=== PATIENT | female | born 1975 | race Asian ===

== ENCOUNTER 2017-04-15 09:51 | Emergency (ER) | payer OTHER ==
[2017-04-15 10:16] VITALS: BP 136/78; PULSE 98; TEMP 98.7; BMI 35.0
[2017-04-15 11:10] LABS: URINE APPEARANCE SLCLOUDY; URINE BILIRUBIN NEGATIVE (NEGATIVE); URINE BLOOD 2+ (NEGATIVE); URINE COLOR YELLOW; URINE GLUCOSE (UA) NEGATIVE (NEGATIVE); URINE KETONE NEGATIVE (NEGATIVE); URINE NITRITE NEGATIVE (NEGATIVE); URINE PROTEIN NEGATIVE (NEGATIVE); URINE UROBILINOGEN NEGATIVE mg/dL (0.2-1.0)
[2017-04-15 11:12] LABS: URINE LEUK ESTERASE 2+ (NEGATIVE)
[2017-04-15 11:27] LABS: EPI CELLS RARE /HPF (FEW); URINE BACTERIA MODERATE /hpf (NONE SEEN); URINE MUCUS RARE
[2017-04-15 11:34] LABS: HCG,QUALITATIVE URINE NEGATIVE
--- NOTE | 2017-04-15 11:38 | PDOC ---
History of Present Illness - General Chief Complaint: Urinary Problem Stated Complaint: POSSIBLE UTI Time Seen by Provider: 04/15/17 10:29 History Source: Patient Exam Limitations: No Limitations - History of Present Illness Initial Comments: 04/15/17 11:32 Patient is a 41-year-old female, has history of urinary tract infections presents with dysuria, mild hematuria, urinary frequency and pain to lower back. Patient reports symptoms started 2 weeks ago started to take amoxicillin that she had at home still with discomfort. Past Medical History: [Denies]. Allergies: No known allergies Medications: [None] Family History: Non-contributory Social History: Denies smoking, alcohol use, or IVDU Review of Systems GENERAL/CONSTITUTIONAL: [No fever or chills. No weakness. No weight change.] HEAD, EYES, EARS, NOSE AND THROAT: [No change in vision. No ear pain or discharge. No sore throat. ] CARDIOVASCULAR: [No chest pain or shortness of breath.] RESPIRATORY: [No cough, wheezing, or hemoptysis.] GASTROINTESTINAL: [No nausea, vomiting, diarrhea or constipation. No rectal bleeding.] GENITOURINARY: [Dysuria, frequency and hematuria MUSCULOSKELETAL: [No joint or muscle swelling or pain. No neck or back pain.] SKIN: [No rash or easy bruising.] NEUROLOGIC: [No headache, vertigo, loss of consciousness, or loss of sensation.] Physical Exam: GENERAL: [The patient is awake, alert, and fully oriented, in no acute distress. ] EYES: [Pupils equal, round and reactive to light, extraocular movements intact, sclera anicteric, conjunctiva clear.] ENT: [Ears normal, nares patent, oropharynx clear without exudates. Moist mucous membranes. No uvula deviation] NECK: [Normal range of motion, supple without lymphadenopathy, JVD, or masses.] LUNGS: [Breath sounds equal, clear to auscultation bilaterally. No wheezes, and no crackles.] HEART: [Regular rate and rhythm, normal S1 and S2 without murmur, rub or gallop. ] ABDOMEN: [Soft, nontender, normoactive bowel sounds. No guarding, no rebound. No masses. No bruising or abrasions] MUSCULOSKELETAL: [Normal range of motion, no edema. No clubbing or cyanosis. No cords, erythema, or tenderness. No CVA Tenderness with fist palpation. ] NEUROLOGICAL: [Cranial nerves II through XII grossly intact. Normal speech, normal gait.] SKIN: [Warm, Dry, normal turgor, no rashes or lesions noted.] Past History - Past Medical History Allergies/Adverse Reactions: Allergies Allergy/AdvReac Type Severity Reaction Status Date / Time No Known Allergies Allergy Verified 04/15/17 10:13 Home Medications: Ambulatory Orders Oxycodone HCl/Acetaminophen [Percocet 7.5-500 mg Tablet] 1 - 2 tab PO Q4H #20 tablet 01/29/13 Hydrocodone Bit/Acetaminophen [Vicodin 5-300mg Tablet] 1 - 2 tab PO Q4H PRN #60 tablet 01/31/13 Cephalexin [Keflex] 500 mg PO BID #14 capsule 04/15/17 Anemia: Yes Asthma: No Cancer: No Cardiac Disorders: No CVA: No COPD: No CHF: No Dementia: No Diabetes: No GI Disorders: No Disorders: No HTN: No Hypercholesterolemia: No Liver Disease: No Seizures: No Thyroid Disease: No - Surgical History Abdominal Surgery: Yes Appendectomy: No Cardiac Surgery: No Cholecystectomy: No Lung Surgery: No Neurologic Surgery: No Orthopedic Surgery: Yes (ORIF RIGHT ANKLE 2013) - Immunization History Immunization Up to Date: Yes - Suicide/Smoking/Psychosocial Hx Smoking Status: No Smoking History: Never smoked Number of Cigarettes Smoked Daily: 0 Hx Alcohol Use: No Drug/Substance Use Hx: No Substance Use Type: None Hx Substance Use Treatment: No *Physical Exam - Vital Signs Last Vital Signs Temp Pulse Resp BP Pulse Ox 98.7 F 98 H 18 136/78 100 04/15/17 10:13 04/15/17 10:13 04/15/17 10:13 04/15/17 10:13 04/15/17 10:13 ED Treatment Course - ADDITIONAL ORDERS Additional order review: Laboratory Results 04/15/17 10:45 Urine Color Yellow Urine Appearance Slcloudy Urine pH 6.0 Ur Specific [place] 1.013 Urine Protein Negative Urine Glucose (UA) Negative Urine Ketones Negative Urine Blood 2+ H Urine Nitrite Negative Urine Bilirubin Negative Urine Urobilinogen Negative Ur Leukocyte Esterase 2+ H D Urine WBC (Auto) 35 Urine RBC (Auto) 14 Ur Epithelial Cells Rare Urine Bacteria Moderate Urine Mucus Rare Medical Decision Making - Medical Decision Making 04/15/17 11:34 A/P: Patient with dysuria, frequency and hematuria. Patient does have a significant urinary tract infection. Patient currently just completed menses one days ago may be the cause of hematuria, Laboratory Results - last 24 hr 04/15/17 10:45 Urine Color Yellow Urine Appearance Slcloudy Urine pH 6.0 Ur Specific [place] 1.013 Urine Protein Negative Urine Glucose (UA) Negative Urine Ketones Negative Urine Blood 2+ H Urine Nitrite Negative Urine Bilirubin Negative Urine Urobilinogen Negative Ur Leukocyte Esterase 2+ H D Urine WBC (Auto) 35 Urine RBC (Auto) 14 Ur Epithelial Cells Rare Urine Bacteria Moderate Urine Mucus Rare Urine HCG, Qual Negative We'll DC patient on Keflex I discussed the physical exam findings, ancillary test results and final diagnoses with the patient. I answered all of the patient's questions. The patient was satisfied with the care received and felt comfortable with the discharge plan and treatment plan. The patient will call to arrange follow-up and will return to the Emergency Department with any new, persistent or worsening symptoms. *DC/Admit/Observation/Transfer Diagnosis at time of Disposition: Urinary tract infection Qualifiers: Urinary tract infection type: acute cystitis Hematuria presence: with hematuria Qualified Code(s): N30.01 - Acute cystitis with hematuria - Discharge Dispostion Disposition: HOME Condition at time of disposition: Stable Admit: No - Prescriptions Prescriptions: Cephalexin [Keflex] 500 mg PO BID #14 capsule - Referrals Referrals: Amber Landa MD [Primary Care Provider] - - Patient Instructions Printed Discharge Instructions: Urinary Tract Infection Additional Instructions: Please increase fluid intake, antibiotics as ordered, recommend follow-up with urology if symptoms persist in 3 days if any fever, increased back pain, nausea vomiting, or any other concerns return to ER - Post Discharge Activity
--- NOTE | 2017-04-18 14:31 | PDOC ---
Patient Follow-up (Call Back) - Post ED Follow - Up Condition at time of discharge: Stable Disposition at time of original discharge: HOME Reason for Call Back: Abnwl. Microbiology (Urine culture shows that keflex is an intermiedient drug choice. Called patient to follow up on symptoms. Reports that she is feeling much better. Will not switch abx at this time. Told patient to finish drug course.)
== END 2017-04-15 11:43 | disposition home or self-care (01) ==
LOC: JERFT 09:51
DX: N30.01 Acute cystitis with hematuria (principal); Z86.2 Personal history of diseases of the blood and blood-forming organs and certain disorders involving the immune mechanism
CPT/HCPCS: 36415; 81003; 81015; 84703; 87077; 87086; 87186; 87491; 87591; 99281-25

== ENCOUNTER 2019-05-14 18:50 | Emergency (ER) | payer OTHER ==
--- NOTE | 2019-05-14 19:05 | PDOC ---
Rapid Medical Evaluation Time Seen by Provider: 05/14/19 19:00 Medical Evaluation: Allergies Allergy/AdvReac Type Severity Reaction Status Date / Time No Known Allergies Allergy Verified 04/15/17 10:13 05/14/19 19:01 I performed a brief in-person evaluation of this patient. 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 She has low grade fevers, bodyaches and dizziness since yesterday. Tmax was 100F. Pertinent physical exam findings: General unwell appearing but nontoxic. No respiratory distress. I have ordered the following: cxr, covid-19 Patient to proceed to [facility] for further evaluation. Discharge Disposition - Diagnosis Body aches - Referrals - Patient Instructions - Post Discharge Activity
[2019-05-14 19:09] VITALS: BP 125/86; PULSE 82; TEMP 99
--- NOTE | 2019-05-14 19:31 | PDOC ---
Rapid Medical Evaluation Time Seen by Provider: 05/14/19 19:00 Medical Evaluation: Allergies Allergy/AdvReac Type Severity Reaction Status Date / Time No Known Allergies Allergy Verified 04/15/17 10:13 Vital Signs Temp Pulse Resp BP Pulse Ox 99.0 F 82 20 125/86 97 05/14/19 19:06 05/14/19 19:06 05/14/19 19:06 05/14/19 19:06 05/14/19 19:06 05/14/19 19:26 HPI: COVID-19 CDC guideline data points: The patient is a 43 y/o female presents with possible exposure to, suspected, or confirmed COVID-19 with associated symptoms of fever, cough, myalgia, and weakness. 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 Pt took tylenol 2 hrs ago for temp 100.6 ROS: NEGATIVE: difficulty breathing, shortness of breath, chest pain, lightheadedness, dizziness, nausea, vomiting and diarrhea. Other 12 point ROS reviewed and negative. Exam: General: NAD, Well-Appearing, Awake, Alert Oriented x3. 100.0 temp, pulse 109, 96 % on RA ENT: No rhinorrhea or nasal congestion. Neck: FROM, no midline tenderness. Lungs: Clear to auscultation bilaterally without wheezes, rhonchi or rales. Normal excursion. Patient is able to speak in full sentences. Heart: HR: [ ] Regular rhythm, S1-S2 present, no murmurs rubs or gallops. Abdomen: Non-distended. MSK/Extremities: No decrease ROM, No obvious deformities. No obvious cyanosis noted. Neuro: Normal Gait, Cranial Nerves II through XII Grossly Intact. Skin: No obvious rashes, bruising. Color Normal Appearing. Assessment/Plan: [Cough/fever] Patient s/s of Covid cxr and covid swab ordered in [facility] repeat vitals 109 96% on RA no resp distress 05/14/19 19:33 CXR although read as -. will treat for early PNA Discharge Disposition - Diagnosis Pneumonia - Discharge Dispostion Disposition: HOME Condition at time of disposition: Good Last Admission D/C Date: 08/08/11 - Referrals Referrals: Amber Landa MD [Primary Care Provider] - - Patient Instructions Printed Discharge Instructions: DI for Pneumonia -- Adult, [facility]Coronavirus Instructions, [facility] COVID-19 Isolation Protocol Additional Instructions: Please take zpak as prescribed . Drink plenty of fluids and try to stay active You were seen for your cough and possible Coronavirus (COVID-19) We will call [facility] covid results in about 5-7 days Take Tylenol 650 mg every 6 hours as needed for fever or pain. You may take Robitussin or other [id number]-[id number] cough syrup. Follow the dosing instructions on the bottle. Warm tea, honey, and salt water gargles may help your symptoms. Please take precautions and self quarantine for 2 weeks and follow-up with your primary care doctor and the Department of Health. Return to the nearest emergency department for shortness of breath, difficulty breathing, chest pain, or if you have any changes in your symptoms. - Post Discharge Activity
== END 2019-05-14 19:38 | disposition home or self-care (01) ==
LOC: JER 18:50
DX: J18.9 Pneumonia, unspecified organism (principal)
CPT/HCPCS: 71045-TC-FY; 99283-25; U0002

== ENCOUNTER 2019-09-22 17:21 | Emergency (ER) | payer OTHER ==
[2019-09-22 17:41] VITALS: BP 137/80; PULSE 94; TEMP 98.6; BMI 38.9
--- NOTE | 2019-09-22 17:54 | PDOC ---
History of Present Illness - General Chief Complaint: Respiratory Stated Complaint: COUGH/SOB Time Seen by Provider: 09/22/19 17:35 History Source: Patient Exam Limitations: No Limitations - History of Present Illness Initial Comments: 09/22/19 17:50 HISTORY OF PRESENT ILLNESS: 43-year-old woman with recent viral pneumonia presents emergency department for evaluation of cough and shortness of breath over the past 2 days. 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 Patient reports [facility] is seeing multiple positive coronavirus patients patient is concerned that she may possibly have coronavirus. She denies any fevers, chills, sore throat, chest pain, abdominal pain, nausea or vomiting. No recent travel or sick contacts. PAST MEDICAL HISTORY: See HPI SURGICAL HISTORY: Denies ALLERGIES: No known drug allergies REVIEW OF SYSTEMS General/Constitutional: Denies fever or chills. Denies weakness, weight change. HEENT: Denies change in vision. Denies ear pain or discharge. Denies sore throat. Cardiovascular: Denies chest pain or shortness of breath. Respiratory: See HPI Gastrointestinal: Denies nausea, vomiting, diarrhea or constipation. Denies rectal bleeding. Genitourinary: Denies dysuria, frequency, or change in urination. Musculoskeletal: Denies joint or muscle swelling or pain. Denies neck or back pain. Skin and breasts: Denies rash or easy bruising. Neurologic: Denies headache, vertigo, loss of consciousness, or loss of sensation. Psychiatric: Denies depression or anxiety. Endocrine: Denies increased thirst. Denies abnormal weight change. Hematologic/Lymphatic: Denies anemia, easy bleeding, or history of blood clots. Allergic/Immunologic: Denies hives or skin allergy. Denies latex allergy. PHYSICAL EXAM General Appearance: Well-appearing, appropriately dressed. No apparent distress, no intoxication. HEENT: EOMI, PERRLA, normal ENT inspection, normal voice. No conjunctival pallor. No photophobia, scleral icterus. TMs with retractions noted bilaterally. Oropharynx mildly erythematous without tonsillar exudate or swelling present. No intraoral lesions are noted. Neck: Supple. Trachea midline. No tenderness, rigidity, carotid bruit, stridor, lymphadenopathy, or thyromegaly. Respiratory/Chest: Lungs CTAB. No shortness of breath, chest tenderness, respiratory distress, accessory muscle use. No crackles, rales, rhonchi, stridor, wheezing, dullness Cardiovascular: RRR. S1, S2. No JVD, murmur, bradycardia, tachycardia. Integumentary: Appropriate color, dry, warm. No cyanosis, erythema, jaundice or rash Past History - Medical History Allergies/Adverse Reactions: Allergies Allergy/AdvReac Type Severity Reaction Status Date / Time No Known Allergies Allergy Verified 06/01/19 04:58 Home Medications: Ambulatory Orders Albuterol Sulfate Inhaler - [Ventolin HFA Inhaler -] 1 - 2 inh PO Q4H #1 inhaler 05/22/19 Famotidine [Pepcid -] 20 mg PO DAILY #7 tablet 06/01/19 Mag Hydrox/Al Hydrox/Simeth [Mylanta Suspension -] 30 ml PO Q6H #1 bottle 06/01/19 Anemia: Yes Asthma: No Cancer: No Cardiac Disorders: No CVA: No COPD: No CHF: No Dementia: No Diabetes: No GI Disorders: No Disorders: No HTN: No Hypercholesterolemia: No Liver Disease: No Seizures: No Thyroid Disease: No - Surgical History Abdominal Surgery: Yes Appendectomy: No Cardiac Surgery: No Cholecystectomy: No Lung Surgery: No Neurologic Surgery: No Orthopedic Surgery: Yes (ORIF RIGHT ANKLE 2013) - Reproductive History Is Patient Now?: No - Immunization History Immunization Up to Date: Yes - Psycho-Social/Smoking History Smoking Status: No Smoking History: Never smoked Have you smoked in the past 12 months: No Number of Cigarettes Smoked Daily: 0 - Substance Abuse Hx (Audit-C & DAST Scrn) How often the patient has a drink containing alcohol: Never Score: In Men: 4 or > Positive; In Women: 3 or > Positive: 0 Screen Result (Pos requires Nsg. Audit-10AR): Negative In the last yr the pt used illegal drug/Rx for NonMed reason: No Score: Yes response is considered Positive: 0 Screen Result (Positive result requires Nsg. DAST-10): Negative *Physical Exam - Vital Signs Last Vital Signs Temp Pulse Resp BP Pulse Ox 98.6 F 94 H 20 137/80 97 09/22/19 17:38 09/22/19 17:38 09/22/19 17:38 09/22/19 17:38 09/22/19 17:38 ED Treatment Course - RADIOLOGY Radiology Studies Ordered: Category Date Time Status CXR [CHEST PA & LAT] [RAD] Stat Radiology 09/22/19 17:46 Ordered Medical Decision Making - Medical Decision Making 09/22/19 17:53 A/P: 43-year-old woman with cough and shortness of breath for 3 days. Oropharynx mildly erythematous without tonsillar exudate or swelling present. TMs retracted bilaterally Lungs clear to auscultation bilaterally Physical exam is consistent with an upper respiratory infection. As patient works in healthcare at multiple jobs I will test for COVID-19. Chest x-ray Reassess 09/22/19 17:58 Chest x-ray as read by me: Angle sharp. Cardiac silhouette is within normal limits. Lung lui clear of infiltrates or consolidations. Discharge home the social distancing. I discussed the physical exam findings, ancillary test results and final diagnoses with the patient. I answered all of the patient's questions. The patient was satisfied with the care received and felt comfortable with the discharge plan and treatment plan. The patient will call their primary care physician within 24 hours to arrange follow-up and will return to the Emergency Department with any new, persistent or worsening symptoms. Portions of this note have been documented using voice recognition software. As a result, errors may occur in the pit inspector process. Effort has been made to correct all grammatical and pit inspector error, but some may have been missed which may produce sporadic inaccurate pit inspector or nonsensical phrases. Discharge - Discharge Information Problems reviewed: Yes Clinical Impression/Diagnosis: Counseled about COVID-19 virus infection URI (upper respiratory infection) Qualifiers: URI type: unspecified viral URI Qualified Code(s): J06.9 - Acute upper respiratory infection, unspecified Condition: Stable Disposition: HOME - Admission No - Follow up/Referral Referrals: Amber Landa MD [Primary Care Provider] - - Patient Discharge Instructions Additional Instructions: Rest, drink lots of fluids: Teas, water, soups, Pedialyte Saltwater gargles Steamy showers/seem to face break up mucus Avoid contact with others until fevers and cough resolved Lots of handwashing and good hygiene Continue [id number] medications for symptomatic relief Tylenol or Motrin for fever and pain Followup with private physician in one to 2 days as needed Return to emergency department for worsened symptoms, fevers, dehydration - Post Discharge Activity
== END 2019-09-22 18:01 | disposition home or self-care (01) ==
LOC: JER 17:21 → JERFT 17:21
DX: J06.9 Acute upper respiratory infection, unspecified (principal)
CPT/HCPCS: 71046-TC-FY; 99283-25; U0003

== ENCOUNTER 2019-12-01 21:20 | Emergency (ER) | payer OTHER ==
[2019-12-01 21:25] VITALS: BP 134/78; PULSE 94; TEMP 97.8; BMI 38.9
--- OUTSIDE RECORDS SUMMARY | 2019-12-01 21:30 | XMS ---
:1975 Author Organization [facility] Support Name Relationship Address Phone [facility]available [address] [facility] [place] [address] [facility] Unavailable [address] [place] [address] [facility] Unavailable [address] [facility] [place] [address] ADROSANNA PEDROZA MOTHER [address] [phone] [facility] [place] [address] ADROSANNA PEDROZA Mother [address] [place] [address] Re-disclosure Warning The records that you are about to access may contain information from federally- assisted alcohol or drug abuse programs. If such information is present, then the following federally mandated warning applies: This information has been disclosed to you from records protected by federal confidentiality rules (42 CFR part 2). The federal rules prohibit you from making any further disclosure of this information unless further disclosure is expressly permitted by the written consent of the person to whom it pertains or as otherwise permitted by 42 CFR part 2. A general authorization for the release of medical or other information is NOT sufficient for this purpose. The Federal rules restrict any use of the information to criminally investigate or prosecute any alcohol or drug abuse patient.The records that you are about to access may contain highly sensitive health information, the redisclosure of which is protected by Article 27-F of the [facility] Public Health law. If you continue you may haveaccess to information: Regarding HIV / AIDS; Provided by facilities licensed or operated by the [facility] Office of Mental Health; or Provided by the [facility] Office for People With Developmental Disabilities. If such information is present, then the following [facility] mandated warning applies: This information has been disclosed to you from confidential records which are protected by state law. State law prohibits you from making any further disclosure of this information without the specific written consent of the person to whom it pertains, or as otherwise permitted by law. Any unauthorized further disclosure in violation of state law may result in a fine or longterm sentence or both. A general authorization for the release of medical or other information is NOT sufficient authorization for further disclosure. Insurance Providers Payer name Policy type Policy ID Covered Covered libertarian's Policy P juan / Coverage libertarian ID relationship to [employer] Inf ormation type eckert LOCAL [id number] - [id number] [facility] [place] [id number] [place] [id number] HMO Results ID Date Data Source [id number] 09/22/2019 05:30:00 PM EDT [facility] Name Value Range Interpretation Description Data Sup porting Code Source(s) Document(s ) SARS [facility] coronavirus 2 RNA This lab was ordered by [facility] and reported by [facility]. ID Date Data Source [id number] 05/26/2019 01:00:00 PM EDT [facility] Name Value Range Interpretation Description Data Sup porting Code Source(s) Document(s ) SARS [facility] CORONAVIRUS 2 RNA This lab was ordered by [facility] and reported by [facility]. ID Date Data Source [id number] 05/23/2019 05:00:00 PM EDT [facility] Name Value Range Interpretation Description Data Sup porting Code Source(s) Document(s ) SARS [facility] CORONAVIRUS 2 RNA This lab was ordered by [facility] and reported by [facility]. ID Date Data Source [id number] 05/14/2019 06:05:00 PM EDT [facility] Name Value Range Interpretation Description Data Sup porting Code Source(s) Document(s ) SARS [facility] CORONAVIRUS 2 RNA This lab was ordered by [facility] and reported by [facility]. ID Date Data Source [id number] 05/07/2019 12:00:00 AM EDT [facility] Name Value Range Interpretation Code Description Data Daya rce(s) Supporting Document(s ) 2019-nCoV [facility] RNA XXX LEONILA+probe- Imp This lab was ordered by [facility] and reported by [facility]. Procedure
[2019-12-01] MEDS ORDERED: KETOROLAC TROMETHAMINE 30 MG/1 ML VIAL IM ONE (21:38)
--- NOTE | 2019-12-01 21:42 | PDOC ---
History of Present Illness - General Chief Complaint: Sore Throat Stated Complaint: SORE THROAT Time Seen by Provider: 12/01/19 21:27 History Source: Patient Exam Limitations: No Limitations - History of Present Illness Initial Comments: 12/01/19 21:39 44-year-old female history of pneumonia in April, positive antibodies for Covid in June presents complaining of sore throat, mild congestion, nausea and dry cough since this morning. Denies shortness of breath, fever, chills, chest pain, abdominal pain, headache, back pain, abdominal pain, urinary complaints, recent travel or any other symptoms. 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 Did not take any pain medication today. ROS: as above PE: GENERAL: well-appearing, NAD HEAD: NCAT EYES: pupils equal, round and reactive to light, sclera anicteric, conjunctiva clear ENT: Normal bilateral ear canals, normal TMs, pharynx: Mild erythema, no exudate, uvula midline NECK: supple, no lymphadenopathy CHEST: nontender RESP: clear, no w/r/r CARDIO: rrr, no m/g/r ABD: +BS, soft, nontender, non distended BACK: no midline spinal ttp, no CVAT EXTREMITIES: Normal range of motion, no edema NEUROLOGICAL: Normal speech, normal gait SKIN: Warm, Dry 12/01/19 21:41 Is this a multiple visit Asthma Patient?: No Past History - Medical History Allergies/Adverse Reactions: Allergies Allergy/AdvReac Type Severity Reaction Status Date / Time No Known Allergies Allergy Verified 12/01/19 21:25 Home Medications: Ambulatory Orders Albuterol Sulfate Inhaler - [Ventolin HFA Inhaler -] 1 - 2 inh PO Q4H #1 inhaler 05/22/19 Famotidine [Pepcid -] 20 mg PO DAILY #7 tablet 06/01/19 Mag Hydrox/Al Hydrox/Simeth [Mylanta Suspension -] 30 ml PO Q6H #1 bottle 06/01/19 Anemia: Yes Asthma: No Cancer: No Cardiac Disorders: No CVA: No COPD: No CHF: No Dementia: No Diabetes: No GI Disorders: No Disorders: No HTN: No Hypercholesterolemia: No Liver Disease: No Seizures: No Thyroid Disease: No - Surgical History Abdominal Surgery: Yes Appendectomy: No Cardiac Surgery: No Cholecystectomy: No Lung Surgery: No Neurologic Surgery: No Orthopedic Surgery: Yes (ORIF RIGHT ANKLE 2013) - Reproductive History Is Patient Now?: No - Immunization History Immunization Up to Date: Yes - Psycho-Social/Smoking History Smoking Status: No Smoking History: Never smoked Have you smoked in the past 12 months: No Number of Cigarettes Smoked Daily: 0 *Physical Exam - Vital Signs Last Vital Signs Temp Pulse Resp BP Pulse Ox 97.8 F 94 H 18 134/78 98 12/01/19 21:22 12/01/19 21:22 12/01/19 21:22 12/01/19 21:22 12/01/19 21:22 Medical Decision Making - Medical Decision Making 12/01/19 21:41 44-year-old female history of pneumonia in April, positive antibodies for Covid in June presents complaining of sore throat, mild congestion, nausea and dry cough since this morning. Denies shortness of breath, fever, chills, chest pain, abdominal pain, headache, back pain, abdominal pain, urinary complaints, recent travel or any other symptoms. 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 Did not take any pain medication today. Rapid strep test Toradol 30 mg IM Reassess 12/01/19 23:18 Rapid strep negative Likely viral syndrome Note for work provided Return precautions discussed Discharge - Discharge Information Problems reviewed: Yes Clinical Impression/Diagnosis: Sore throat Condition: Stable Disposition: HOME - Admission No - Follow up/Referral Referrals: Candi Landa MD [Non Staff, Medical] - - Patient Discharge Instructions Additional Instructions: Alternate between acetaminophen 650 mg and ibuprofen 600 mg every 6 hours as needed for throat pain Rest, remain hydrated A note for work was provided to you today Follow-up with your primary care doctor within 1 week Return to ED if symptoms worsen - Post Discharge Activity Work/Back to School Note: Back to Work
[2019-12-01] MEDS ORDERED: KETOROLAC TROMETHAMINE 30 MG/1 ML VIAL ONE (22:08)
== END 2019-12-01 23:00 | disposition home or self-care (01) ==
LOC: JERFT 21:20
PROC: 3E0233Z Introduction of Anti-inflammatory into Muscle, Percutaneous Approach (ICD-10-PCS; principal; 2019-12-01)
DX: J02.9 Acute pharyngitis, unspecified (principal)
CPT/HCPCS: 87070; 87880; 99284-25

== ENCOUNTER 2020-07-28 23:22 | Inpatient (IN) | payer OTHER ==
[2020-07-28] MEDS ORDERED: TAMSULOSIN HCL 0.4 MG CAP PO ONE (23:37)
[2020-07-28] MEDS ORDERED: SODIUM CHLORIDE 1,000 ML IV STA (23:37)
[2020-07-28] MEDS ORDERED: KETOROLAC TROMETHAMINE 15 MG/ML VIAL IVPUSH ONE (23:37)
[2020-07-28] MEDS ORDERED: CEFTRIAXONE 1 GM in DEXTROSE 5%-WATER - 50 ML IVPB ONE (23:38)
[2020-07-28] MEDS ORDERED: ACETAMINOPHEN 1000 MG/100 ML VIAL (NON FORMULARY) IVPB ONE (23:42)
[2020-07-28] MEDS ORDERED: TAMSULOSIN HCL 0.4 MG CAP ONE (23:51)
[2020-07-28] MEDS ORDERED: ACETAMINOPHEN INJECTION 100 ML IVPB ONE (23:52)
[2020-07-28] MEDS ORDERED: KETOROLAC TROMETHAMINE 15 MG/ML VIAL ONE (23:52)
[2020-07-28] MEDS ORDERED: cefTRIAXone SODIUM 1 GM VIAL ONE (23:52)
[2020-07-28 23:55] LABS: BASO % 0.4 % (0-2.0); EOS % 0.7 % (0-4.5); HEMATOCRIT 36.7 % (32.4-45.2); HEMOGLOBIN 11.9 GM/dL (10.7-15.3); LYMPH % 19.3 % (8-40); MCH 25.2 pg (25.7-33.7); MCHC 32.5 g/dl (32.0-36.0); MEAN CELL VOLUME 77.7 fl (80-96); MEAN PLT VOLUME 8.1 fl (7.5-11.1); MONO % 4.6 % (3.8-10.2); PLATELET COUNT 363 K/MM3 (134-434); RBC 4.73 M/mm3 (3.60-5.2); WHITE BLOOD COUNT 11.9 K/mm3 (4.0-10.0)
[2020-07-29 00:21] LABS: ALBUMIN 3.5 g/dl (3.4-5.0); BLOOD UREA NITROGEN 11.7 mg/dL (7-18); CALCIUM 8.7 mg/dL (8.5-10.1)
[2020-07-29] MEDS ORDERED: ONDANSETRON 4 MG/2 ML VIAL IVPUSH ONE (00:23)
[2020-07-29] MEDS ORDERED: morphine CARPU-JECT 4 MG/1 ML DISP.SYRIN IVPUSH ONE ×3 (00:23→03:12)
[2020-07-29 00:24] LABS: CREATININE 0.7 mg/dL (0.55-1.3)
[2020-07-29] MEDS ORDERED: morphine SULFATE 4 MG/ML VIAL ONE (00:25)
[2020-07-29] MEDS ORDERED: ONDANSETRON 4 MG/2 ML VIAL ONE (00:25)
[2020-07-29 00:26] LABS: BILIRUBIN,TOTAL 0.3 mg/dL (0.2-1); TOT PROT 7.2 g/dl (6.4-8.2)
[2020-07-29] MEDS ORDERED: SODIUM CHLORIDE 1,000 ML IV STA (00:48)
[2020-07-29] MEDS ORDERED: LACTATED RINGERS SOLUTION 1000 ML INFUS.BAG IV ONE (01:00)
[2020-07-29 01:55] LABS: EPI CELLS 30 /uL (0-25.1); HYALINE CASTS 1 /uL (0-3.1); PH,URINE 5.5 (5.0-8.0); URINE APPEARANCE CLEAR; URINE BACTERIA 40 /uL (0-1359); URINE BILIRUBIN NEGATIVE (NEGATIVE); URINE COLOR YELLOW; URINE GLUCOSE (UA) NEGATIVE (NEGATIVE); URINE KETONE NEGATIVE (NEGATIVE); URINE LEUK ESTERASE NEGATIVE (NEGATIVE); URINE NITRITE NEGATIVE (NEGATIVE); URINE PROTEIN NEGATIVE (NEGATIVE); URINE UROBILINOGEN 0.2 mg/dL (0.2-1.0); URINE WBC 38 /uL (0-25.8)
[2020-07-29] MEDS ORDERED: KETOROLAC TROMETHAMINE 30 MG/1 ML VIAL IVPUSH ONE (02:07)
[2020-07-29] MEDS ORDERED: KETOROLAC TROMETHAMINE 30 MG/1 ML VIAL ONE (02:27)
[2020-07-29] MEDS ORDERED: TAMSULOSIN HCL 0.4 MG CAP PO ONE (04:14)
[2020-07-29 04:23] LABS: URINE CRYSTALS MODERATE /hpf
[2020-07-29] MEDS: ACETAMINOPHEN 325 MG TABLET (FP) PO SCH ×5 (05:28→21:30)
[2020-07-29] MEDS: MORPHINE SULFATE 2 MG/ML VIAL IVPUSH PRN ×2 (05:29→20:53)
[2020-07-29] MEDS ORDERED: CEFTRIAXONE 1 GM in DEXTROSE 5%-WATER - 50 ML IVPB ONE ×2 (05:30→22:00)
[2020-07-29] MEDS: DEXTROSE 5%-NORMAL SALINE 1,000 ML IV SCH ×2 (05:36→16:26)
[2020-07-29] MEDS: KETOROLAC TROMETHAMINE 15 MG/ML VIAL IVPUSH SCH ×3 (10:06→19:59)
[2020-07-29] MEDS: ENOXAPARIN NA (PORCINE) 40 MG/0.4 ML DISP.SYRIN SQ SCH (10:07)
[2020-07-29 11:33] LABS: BASO % 0.3 % (0-2.0); EOS % 0.5 % (0-4.5); HEMATOCRIT 34.9 % (32.4-45.2); LYMPH % 25.8 % (8-40); MCH 24.9 pg (25.7-33.7); MCHC 31.5 g/dl (32.0-36.0); MEAN CELL VOLUME 79.1 fl (80-96); MEAN PLT VOLUME 8.5 fl (7.5-11.1); MONO % 5.4 % (3.8-10.2); PLATELET COUNT 325 K/MM3 (134-434); RBC 4.41 M/mm3 (3.60-5.2); WHITE BLOOD COUNT 11.4 K/mm3 (4.0-10.0)
[2020-07-29 12:06] LABS: BLOOD UREA NITROGEN 8.8 mg/dL (7-18); CALCIUM 8.2 mg/dL (8.5-10.1)
[2020-07-29 12:10] LABS: CREATININE 0.6 mg/dL (0.55-1.3)
[2020-07-29 12:11] LABS: BILIRUBIN,TOTAL 0.4 mg/dL (0.2-1); TOT PROT 6.2 g/dl (6.4-8.2)
[2020-07-29] MEDS ORDERED: cefTRIAXone SODIUM 1 GM VIAL ONE (21:24)
[2020-07-29] MEDS ORDERED: DEXTROSE 5%-WATER - 50 ML IVPB ONE (21:24)
[2020-07-30] MEDS: MORPHINE SULFATE 2 MG/ML VIAL IVPUSH PRN (00:56)
[2020-07-30] MEDS: ACETAMINOPHEN 325 MG TABLET (FP) PO SCH ×6 (01:50→21:43)
[2020-07-30] MEDS ORDERED: KETOROLAC TROMETHAMINE 30 MG/1 ML VIAL IM ONE (02:03)
[2020-07-30] MEDS: KETOROLAC TROMETHAMINE 15 MG/ML VIAL IVPUSH SCH ×4 (02:42→21:42)
[2020-07-30] MEDS: DEXTROSE 5%-NORMAL SALINE 1,000 ML IV SCH (05:28)
[2020-07-30] MEDS ORDERED: ACETAMINOPHEN 1000 MG/100 ML VIAL (NON FORMULARY) IVPB ONE (06:00)
[2020-07-30 07:15] LABS: HEMATOCRIT 32.6 % (32.4-45.2); HEMOGLOBIN 10.4 GM/dL (10.7-15.3); MCHC 31.9 g/dl (32.0-36.0); MEAN CELL VOLUME 78.3 fl (80-96); MEAN PLT VOLUME 8.3 fl (7.5-11.1); PLATELET COUNT 324 10^3/uL (134-434); RBC 4.16 M/mm3 (3.60-5.2); RDW 16.2 % (11.6-15.6); WHITE BLOOD COUNT 12.9 K/mm3 (4.0-10.0)
[2020-07-30 07:31] LABS: BLOOD UREA NITROGEN 7.4 mg/dL (7-18); CALCIUM 8.1 mg/dL (8.5-10.1)
[2020-07-30 07:35] LABS: CREATININE 0.8 mg/dL (0.55-1.3)
[2020-07-30] MEDS ORDERED: CEFTRIAXONE 1 GM in DEXTROSE 5%-WATER - 50 ML IVPB SCH (10:30)
[2020-07-30] MEDS ORDERED: MORPHINE SULFATE 2 MG/ML VIAL IM PRN (10:36)
[2020-07-30] MEDS ORDERED: morphine SULFATE 4 MG/ML VIAL IVPUSH PRN (10:37)
[2020-07-30] MEDS ORDERED: LACTATED RINGERS SOLUTION 1,000 ML/1,000 ML INFUS.BAG IV SCH (10:45)
[2020-07-30] MEDS: LACTATED RINGERS SOLUTION 1,000 ML/1,000 ML INFUS.BAG IV SCH ×2 (11:05→20:38)
[2020-07-30] MEDS ORDERED: ERTAPENEM SODIUM 1 GM VIAL ONE (11:08)
[2020-07-30] MEDS ORDERED: SODIUM CHLORIDE 50 ML IVPB ONE (11:08)
[2020-07-30] MEDS: ERTAPENEM SODIUM 1 GM in SODIUM CHLORIDE 50 ML IVPB SCH (11:15)
[2020-07-30] MEDS: TAMSULOSIN HCL 0.4 MG CAP PO SCH (11:16)
[2020-07-30] MEDS: ENOXAPARIN NA (PORCINE) 40 MG/0.4 ML DISP.SYRIN SQ SCH (11:17)
[2020-07-30] MEDS: POLYETHYLENE GLYCOL 3350 119 GM BTL PO SCH (11:36)
[2020-07-30] MEDS: INSULIN SLIDING SCALE (NOVOLOG) 1 VIAL SQ SCH ×3 (12:12→21:43)
[2020-07-30] MEDS: ONDANSETRON 4 MG/2 ML VIAL IVPUSH PRN (14:03)
[2020-07-30] MEDS ORDERED: MAG HYDROX/AL HYDROX/SIMETH 30 ML UNIT-DOSE CUP PO PRN (15:51)
[2020-07-30] MEDS: ATORVASTATIN CA 20 MG TABLET (FP) PO SCH (21:43)
[2020-07-30] MEDS ORDERED: PATIENT'S OWN MEDICATION (NON-FORMULARY) (Lifitegrast [Xiidra] 1 EACH Droperette) OU SCH (22:00)
[2020-07-31] MEDS: KETOROLAC TROMETHAMINE 15 MG/ML VIAL IVPUSH SCH ×4 (02:40→22:33)
[2020-07-31] MEDS: ACETAMINOPHEN 325 MG TABLET (FP) PO SCH ×7 (02:45→21:16)
[2020-07-31] MEDS ORDERED: DOCUSATE SODIUM 100 MG CAPSULE (FP) PO ONE (03:00)
[2020-07-31] MEDS: LACTATED RINGERS SOLUTION 1,000 ML/1,000 ML INFUS.BAG IV SCH ×2 (03:00→16:50)
[2020-07-31] MEDS: INSULIN SLIDING SCALE (NOVOLOG) 1 VIAL SQ SCH ×5 (06:12→22:33)
[2020-07-31] MEDS ORDERED: ACETAMINOPHEN 1000 MG/100 ML VIAL (NON FORMULARY) IVPB ONE (06:29)
[2020-07-31 07:48] LABS: HEMATOCRIT 30.4 % (32.4-45.2); HEMOGLOBIN 9.9 GM/dL (10.7-15.3); MCH 25.6 pg (25.7-33.7); MCHC 32.7 g/dl (32.0-36.0); MEAN CELL VOLUME 78.3 fl (80-96); MEAN PLT VOLUME 8.3 fl (7.5-11.1); PLATELET COUNT 304 10^3/uL (134-434); RBC 3.88 M/mm3 (3.60-5.2); WHITE BLOOD COUNT 8.8 K/mm3 (4.0-10.0)
[2020-07-31 08:04] LABS: BLOOD UREA NITROGEN 6.4 mg/dL (7-18); CALCIUM 8.2 mg/dL (8.5-10.1)
[2020-07-31 08:07] LABS: CREATININE 0.5 mg/dL (0.55-1.3)
[2020-07-31] MEDS ORDERED: IBUPROFEN 400 MG TABLET (FP) PO ONE (09:26)
[2020-07-31] MEDS ORDERED: IBUPROFEN 400 MG TABLET (FP) PO PRN (09:27)
[2020-07-31] MEDS ORDERED: SODIUM CHLORIDE 50 ML IVPB ONE (10:41)
[2020-07-31] MEDS ORDERED: ERTAPENEM SODIUM 1 GM VIAL ONE (10:41)
[2020-07-31] MEDS: PANTOPRAZOLE 20 MG TABLET PO SCH (10:43)
[2020-07-31] MEDS: ENOXAPARIN NA (PORCINE) 40 MG/0.4 ML DISP.SYRIN SQ SCH (10:44)
[2020-07-31] MEDS: TAMSULOSIN HCL 0.4 MG CAP PO SCH (10:44)
[2020-07-31] MEDS: ERTAPENEM SODIUM 1 GM in SODIUM CHLORIDE 50 ML IVPB SCH (10:44)
[2020-07-31] MEDS: POLYETHYLENE GLYCOL 3350 119 GM BTL PO SCH (10:47)
[2020-07-31 12:41] VITALS: BMI 42.0
[2020-07-31] MEDS: ONDANSETRON 4 MG/2 ML VIAL IVPUSH PRN (14:36)
[2020-07-31] MEDS: ATORVASTATIN CA 20 MG TABLET (FP) PO SCH (21:49)
[2020-08-01] MEDS: ACETAMINOPHEN 325 MG TABLET (FP) PO SCH ×3 (01:32→09:27)
[2020-08-01] MEDS: KETOROLAC TROMETHAMINE 15 MG/ML VIAL IVPUSH SCH ×2 (02:34→09:26)
[2020-08-01] MEDS: LACTATED RINGERS SOLUTION 1,000 ML/1,000 ML INFUS.BAG IV SCH (04:17)
[2020-08-01 06:10] VITALS: PULSE 88
[2020-08-01] MEDS: INSULIN SLIDING SCALE (NOVOLOG) 1 VIAL SQ SCH ×2 (06:30→11:04)
[2020-08-01 07:39] LABS: HEMATOCRIT 31.7 % (32.4-45.2); HEMOGLOBIN 10.4 GM/dL (10.7-15.3); MCH 25.2 pg (25.7-33.7); MCHC 32.7 g/dl (32.0-36.0); MEAN CELL VOLUME 77.2 fl (80-96); MEAN PLT VOLUME 8.4 fl (7.5-11.1); PLATELET COUNT 335 10^3/uL (134-434); RBC 4.11 M/mm3 (3.60-5.2); WHITE BLOOD COUNT 9.2 K/mm3 (4.0-10.0)
[2020-08-01 07:55] LABS: BLOOD UREA NITROGEN 6.2 mg/dL (7-18); CALCIUM 8.6 mg/dL (8.5-10.1)
[2020-08-01 07:59] LABS: CREATININE 0.6 mg/dL (0.55-1.3)
[2020-08-01] MEDS ORDERED: ERTAPENEM SODIUM 1 GM VIAL ONE (09:16)
[2020-08-01] MEDS ORDERED: SODIUM CHLORIDE 50 ML IVPB ONE (09:17)
[2020-08-01] MEDS: TAMSULOSIN HCL 0.4 MG CAP PO SCH (09:24)
[2020-08-01] MEDS: ERTAPENEM SODIUM 1 GM in SODIUM CHLORIDE 50 ML IVPB SCH (09:24)
[2020-08-01] MEDS: ENOXAPARIN NA (PORCINE) 40 MG/0.4 ML DISP.SYRIN SQ SCH (09:25)
[2020-08-01] MEDS: PANTOPRAZOLE 20 MG TABLET PO SCH (09:25)
[2020-08-01] MEDS: POLYETHYLENE GLYCOL 3350 119 GM BTL PO SCH (09:27)
[2020-08-01] MEDS ORDERED: CYANOCOBALAMIN (VITAMIN B-12) 1000 MCG/1 ML VIAL IM SCH (09:45)
[2020-08-01 14:23] VITALS: BP 134/72; TEMP 98.2
== END 2020-08-01 14:33 | disposition home or self-care (01) | DRG 690 ==
LOC: JER 23:22 → OBSVTOIN 07-29 03:10 → JERBED 07-29 03:10 → J7W 07-29 05:20
PROVIDERS: ADMIT Hospitalist; ATTEND Internal Medicine
DX: N13.6 Pyonephrosis (principal); Z68.41 Body mass index [BMI] 40.0-44.9, adult; E78.5 Hyperlipidemia, unspecified; E66.9 Obesity, unspecified; D50.9 Iron deficiency anemia, unspecified; D72.829 Elevated white blood cell count, unspecified; R31.9 Hematuria, unspecified; E11.65 Type 2 diabetes mellitus with hyperglycemia; R50.9 Fever, unspecified
CPT/HCPCS: 36415; 74176-TC; 76775-TC; 76856-TC; 80048; 80053; 81003; 82962; 83036; 84703; 85025; 85027; 87086; 93005; 93010; 99285-25; C9803; J0131; U0003; U0005

== ENCOUNTER 2020-08-23 19:47 | Emergency (ER) | payer OTHER ==
[2020-08-23 20:03] VITALS: TEMP 98.1; BMI 39.1
[2020-08-23] MEDS ORDERED: SODIUM CHLORIDE 1,000 ML IV STA (20:21)
[2020-08-23] MEDS ORDERED: KETOROLAC TROMETHAMINE 30 MG/1 ML VIAL IVPUSH ONE (20:22)
[2020-08-23] MEDS ORDERED: KETOROLAC TROMETHAMINE 30 MG/1 ML VIAL ONE (20:48)
[2020-08-23 21:11] LABS: BASO % 0.6 % (0-2.0); EOS % 1.2 % (0-4.5); HEMATOCRIT 37.7 % (32.4-45.2); HEMOGLOBIN 12.2 GM/dL (10.7-15.3); LYMPH % 27.2 % (8-40); MCHC 32.3 g/dl (32.0-36.0); MEAN CELL VOLUME 77.3 fl (80-96); MEAN PLT VOLUME 8.6 fl (7.5-11.1); MONO % 3.7 % (3.8-10.2); NEUT % 67.3 % (42.8-82.8); PLATELET COUNT 374 10^3/uL (134-434); RBC 4.88 M/mm3 (3.60-5.2); RDW 15.6 % (11.6-15.6); WHITE BLOOD COUNT 12.6 K/mm3 (4.0-10.0)
[2020-08-23 21:26] LABS: HCG,QUALITATIVE URINE Negative
[2020-08-23 21:29] LABS: EPI CELLS 26 /uL (0-25.1); HYALINE CASTS 3 /uL (0-3.1); URINE APPEARANCE CLOUDY; URINE BACTERIA >9,000 /uL (0-1359); URINE BILIRUBIN NEGATIVE (NEGATIVE); URINE COLOR YELLOW; URINE GLUCOSE (UA) NEGATIVE (NEGATIVE); URINE KETONE TRACE (NEGATIVE); URINE LEUK ESTERASE 1+ (NEGATIVE); URINE NITRITE NEGATIVE (NEGATIVE); URINE PROTEIN NEGATIVE (NEGATIVE); URINE RBC 158 /uL (0-23.9); URINE UROBILINOGEN 0.2 mg/dL (0.2-1.0); URINE WBC 35 /uL (0-25.8)
[2020-08-23 21:34] LABS: ALBUMIN 3.6 g/dl (3.4-5.0); CALCIUM 8.9 mg/dL (8.5-10.1)
[2020-08-23 21:38] LABS: CREATININE 0.7 mg/dL (0.55-1.3)
[2020-08-23 21:39] LABS: BILIRUBIN,TOTAL 0.6 mg/dL (0.2-1)
[2020-08-23] MEDS ORDERED: CEFTRIAXONE 1 GM in DEXTROSE 5%-WATER - 100 ML IVPB ONE (21:57)
[2020-08-23] MEDS ORDERED: CEFTRIAXONE 1 GM/50 ML BAG ONE (22:07)
[2020-08-23 23:06] VITALS: BP 123/79; PULSE 86
== END 2020-08-23 23:05 | disposition home or self-care (01) ==
LOC: JER 19:47 → JERFT 19:47
PROC: 3E03329 Introduction of Other Anti-infective into Peripheral Vein, Percutaneous Approach (ICD-10-PCS; principal; 2020-08-23)
PROC: 3E0333Z Introduction of Anti-inflammatory into Peripheral Vein, Percutaneous Approach (ICD-10-PCS; 2020-08-23)
PROC: 3E0337Z Introduction of Electrolytic and Water Balance Substance into Peripheral Vein, Percutaneous Approach (ICD-10-PCS; 2020-08-23)
DX: R10.32 Left lower quadrant pain (principal)
CPT/HCPCS: 36415; 74176-TC; 80053; 81003; 84703; 85025; 87086; 87186; 99284-25

== ENCOUNTER 2020-11-23 19:05 | Emergency (ER) | payer OTHER ==
[2020-11-23 19:11] VITALS: BP 125/75; PULSE 77; TEMP 98.3; BMI 33.6
[2020-11-23] MEDS ORDERED: guaiFENesin/D-METHORPHAN HB 10 ML UNIT-DOSE CUPS PO ONE (19:23)
[2020-11-23] MEDS ORDERED: LACTATED RINGERS SOLUTION 1000 ML INFUS.BAG IV ONE (19:39)
[2020-11-23] MEDS ORDERED: guaiFENesin/D-METHORPHAN HB 10 ML UNIT-DOSE CUPS ONE (19:44)
[2020-11-23 20:01] LABS: BASO % 0.4 % (0-2.0); EOS % 2.7 % (0-4.5); HEMATOCRIT 37.5 % (32.4-45.2); HEMOGLOBIN 12.2 GM/dL (10.7-15.3); LYMPH % 34.9 % (8-40); MCH 25.4 pg (25.7-33.7); MCHC 32.4 g/dl (32.0-36.0); MEAN CELL VOLUME 78.3 fl (80-96); MEAN PLT VOLUME 8.1 fl (7.5-11.1); MONO % 6.7 % (3.8-10.2); NEUT % 55.3 % (42.8-82.8); PLATELET COUNT 356 10^3/uL (134-434); RBC 4.79 M/mm3 (3.60-5.2); RDW 17.1 % (11.6-15.6); WHITE BLOOD COUNT 5.2 K/mm3 (4.0-10.0)
== END 2020-11-23 21:01 | disposition home or self-care (01) ==
LOC: JERFT 19:05 → JER 19:05 → JERFT 21:01
DX: R05.1 Acute cough (principal); J06.9 Acute upper respiratory infection, unspecified; Z11.52 Encounter for screening for COVID-19
CPT/HCPCS: 36415; 71046-TC-FY; 84703; 85025; 86850; 86900; 86901; 87804; 99284-25; C9803; U0003; U0005

== ENCOUNTER 2022-10-26 17:05 | Emergency (ER) | payer OTHER ==
[2022-10-26 17:11] VITALS: BP 112/79; PULSE 81; RESP 18; TEMP 98.7; BMI 26.5
[2022-10-26] MEDS ORDERED: ONDANSETRON *ODT* 4 MG TABLET ONE (18:31)
[2022-10-26] MEDS ORDERED: ONDANSETRON *ODT* 4 MG TABLET SL ONE (18:32)
== END 2022-10-26 18:55 | disposition home or self-care (01) ==
LOC: JER 17:05 → JERFT 17:05
DX: J02.9 Acute pharyngitis, unspecified (principal); R05.9 Cough, unspecified; R09.81 Nasal congestion; R53.83 Other fatigue; J06.9 Acute upper respiratory infection, unspecified
CPT/HCPCS: 87651; 99283-25; Q0162

== ENCOUNTER 2024-07-09 11:24 | Emergency (ER) | payer OTHER ==
[2024-07-09 11:32] VITALS: RESP 20; BMI 30.1
[2024-07-09] MEDS ORDERED: ACETAMINOPHEN 325 MG TABLET (FP) ONE (12:02)
[2024-07-09] MEDS ORDERED: IBUPROFEN 600 MG TABLET (FP) PO ONE (12:02)
[2024-07-09] MEDS: IBUPROFEN 600 MG TABLET (FP) PO ONE (12:06)
[2024-07-09] MEDS: ACETAMINOPHEN 325 MG TABLET (FP) PO ONE (12:08)
[2024-07-09 12:44] LABS: EPI CELLS >36 /uL (0-25.1); HYALINE CASTS 1 /uL (0-3.1); URINE APPEARANCE CLOUDY; URINE BACTERIA 3164 /uL (0-1359); URINE BILIRUBIN NEGATIVE (NEGATIVE); URINE COLOR YELLOW; URINE GLUCOSE (UA) NEGATIVE (NEGATIVE); URINE KETONE NEGATIVE (NEGATIVE); URINE LEUK ESTERASE 3+ (NEGATIVE); URINE NITRITE NEGATIVE (NEGATIVE); URINE PROTEIN NEGATIVE (NEGATIVE); URINE RBC 94 /uL (0-23.9); URINE UROBILINOGEN 0.2 mg/dL (0.2-1.0); URINE WBC 845 /uL (0-25.8)
[2024-07-09 13:47] VITALS: BP 97/65; PULSE 89; TEMP 98.6
== END 2024-07-09 14:19 | disposition home or self-care (01) ==
LOC: JERFT 11:24
DX: N39.0 Urinary tract infection, site not specified (principal); B34.9 Viral infection, unspecified; R00.0 Tachycardia, unspecified
CPT/HCPCS: 0241U-QW; 71046-TC-FY; 81003; 87077; 87086; 99284-25

== ENCOUNTER 2024-07-13 08:17 | Emergency (ER) | payer OTHER ==
[2024-07-13 08:45] VITALS: BP 105/70; PULSE 94; RESP 18; TEMP 99.1; BMI 30.1
[2024-07-13 10:17] LABS: ABSOLUTE IMMATURE GRANULOCYTES 0.02 x10^3/uL (0.0-0.031); EOSINOPHIL % 0.3 % (0.7-5.8); EOSINOPHILS # 0.01 x10^3/uL (0.04-0.36); HEMATOCRIT 40.1 % (34.1-44.9); HEMOGLOBIN 12.1 g/dL (11.2-15.7); MCHC 30.2 g/dl (32.2-35.5); MEAN CELL VOLUME 85.9 fl (79.4-94.8); MEAN PLT VOLUME 11.1 fl (9.4-12.3); MONOCYTE # 0.23 x10^3/uL (0.24-0.86); MONOCYTE % 7.5 % (4.7-12.5); PLATELET COUNT 223 x10^3/uL (182-369); RDW 14.2 % (12.2-17.1)
[2024-07-13 10:29] LABS: EPI CELLS >36 /uL (0-25.1); HYALINE CASTS 1 /uL (0-3.1); PH,URINE 6.5 (5.0-8.0); URINE APPEARANCE CLOUDY; URINE BACTERIA 2928 /uL (0-1359); URINE BILIRUBIN NEGATIVE (NEGATIVE); URINE COLOR YELLOW; URINE GLUCOSE (UA) NEGATIVE (NEGATIVE); URINE KETONE NEGATIVE (NEGATIVE); URINE LEUK ESTERASE 1+ (NEGATIVE); URINE NITRITE NEGATIVE (NEGATIVE); URINE PROTEIN NEGATIVE (NEGATIVE); URINE RBC 16 /uL (0-23.9); URINE UROBILINOGEN 0.2 mg/dL (0.2-1.0); URINE WBC 71 /uL (0-25.8)
[2024-07-13 10:42] LABS: CALCIUM 9.1 mg/dL (8.5-10.1)
[2024-07-13 10:43] LABS: ALBUMIN 3.4 g/dl (3.4-5.0); BLOOD UREA NITROGEN 8.7 mg/dL (7-18)
[2024-07-13 10:47] LABS: BILIRUBIN,TOTAL 0.3 mg/dL (0.2-1)
[2024-07-13] MEDS ORDERED: ACETAMINOPHEN INJECTION 100 ML ONE (10:52)
[2024-07-13] MEDS ORDERED: guaiFENesin/D-METHORPHAN HB 10 ML UNIT-DOSE CUPS ONE (10:52)
[2024-07-13 11:04] LABS: CREATININE 0.7 mg/dL (0.55-1.3); TOT PROT 6.7 g/dl (6.4-8.2)
[2024-07-13] MEDS: ACETAMINOPHEN 1000 MG/100 ML BAG IVPB ONE (11:07)
[2024-07-13] MEDS: guaiFENesin/D-METHORPHAN HB 10 ML UNIT-DOSE CUPS PO ONE (11:07)
[2024-07-13] MEDS: SODIUM CHLORIDE 0.9% 500 ML INFUS.BAG IV ONE (11:07)
[2024-07-13 11:13] LABS: URINE CRYSTALS PRESENT /hpf
[2024-07-13] MEDS ORDERED: ONDANSETRON 4 MG/2 ML VIAL ONE (11:13)
[2024-07-13] MEDS: ONDANSETRON 4 MG/2 ML VIAL IVPUSH ONE (11:26)
== END 2024-07-13 12:19 | disposition home or self-care (01) ==
LOC: JERFT 08:17
PROC: 3E033NZ Introduction of Analgesics, Hypnotics, Sedatives into Peripheral Vein, Percutaneous Approach (ICD-10-PCS; principal; 2024-07-13)
PROC: 3E033GC Introduction of Other Therapeutic Substance into Peripheral Vein, Percutaneous Approach (ICD-10-PCS; 2024-07-13)
DX: J10.1 Influenza due to other identified influenza virus with other respiratory manifestations (principal); N39.0 Urinary tract infection, site not specified; R05.9 Cough, unspecified; R50.9 Fever, unspecified; M54.9 Dorsalgia, unspecified; J34.3 Hypertrophy of nasal turbinates
CPT/HCPCS: 0241U-QW; 36415; 71046-TC-FY; 80053; 81003; 85025; 87086; 99284-25; J0131